=== PATIENT | male | born 1990 | race Caucasian/White ===

== ENCOUNTER 2020-01-01 19:22 | Emergency (ER) | payer SELFPAY ==
[2020-01-01 19:33] VITALS: BP 153/89
--- NOTE | 2020-01-01 21:14 | ER Document Report ---
HPI - HPI Pain Level: 5 Notes: 29-year-old male with right ear pain starting since Monday. The pain is gotten worse in intensity over the last couple of days. He has not noticed any discharge. Has noticed decreased hearing in his right ear. No recent swimming. No recent trauma to the head. - EENT EENT: REPORTS: Ear Pain - rt ear pain Past Medical History - Social History Smoking Status: Never Smoker Family History: Reviewed & Not Pertinent Vertical Provider Document - CONSTITUTIONAL General Appearance: WD/WN, No Apparent Distress - HEENT HEENT: Atraumatic, Normocephalic. negative: Pharyngeal Exudate, Pharyngeal Erythema Notes: Right ear tympanic membrane rupture, with mild white discharge in ear canal, and erythema in the middle ear. Tragus and pinna are nontender, mastoid process is nontender No external ear swelling or erythema. Left ear TM is intact, normal cone of light, no bulge. No ear swelling or erythema. - NECK Neck: Normal Inspection - RESPIRATORY Respiratory: No Respiratory Distress - NEURO Level of Consciousness: Awake, Alert - DERM Integumentary: Warm, Dry Course - Re-evaluation Re-evalutation: 01/01/20 21:56 Patient with physical exam findings consistent with tympanic membrane rupture with acute otitis media. I will treat patient with antibiotics. I discussed these findings with the patient. Also recommend that he follows up with a primary care provider and ENT provider as soon as possible for further evaluation and treatment. I also discussed return precautions with patient to include worsening symptoms or the development of new symptoms. Patient acknow ledges and verbalizes understanding of instructions and plan. All questions answered. - Vital Signs Vital signs: Temp Pulse Resp BP Pulse Ox 98.0 F 85 16 153/89 H 96 01/01/20 19:31 01/01/20 19:31 01/01/20 19:31 01/01/20 19:31 01/01/20 19:31 Discharge - Discharge Clinical Impression: Ear infection Tympanic membrane perforation Qualifiers: Laterality: right Qualified Code(s): H72.91 - Unspecified perforation of tympanic membrane, right ear Condition: Stable Disposition: HOME, SELF-CARE Instructions: Otitis Media ([facility]) Additional Instructions: Your physical exam is consistent with a inner ear infection with a ruptured tympanic membrane. Please take the antibiotics as prescribed. Please follow-up with an ENT provider as soon as possible. I also recommend that you follow-up with your primary care within 24 to 48 hours. Please return to the emergency department for worsening symptoms or development of new symptoms. Prescriptions: Amoxicillin/Potassium Clav [Augmentin 875-125 Tablet] 1 tab PO BID #20 tab Ciprofloxacin HCl/Dexameth [Ciprodex Otic Suspension] 7.5 ml OT BID 5 Days #1 bottle
== END 2020-01-01 21:50 | disposition home or self-care (01) ==
LOC: ER 19:22
DX: H66.90 Otitis media, unspecified, unspecified ear (principal); H72.91 Unspecified perforation of tympanic membrane, right ear; H92.01 Otalgia, right ear
CPT/HCPCS: 99283